=== PATIENT | male | born 1950 | race Caucasian/White ===

== ENCOUNTER → 2017-08-07 | Outpatient (CLI) | payer MEDICARE ==
[2017-08-07 12:48] LABS: CHLORIDE 109 mmol/L (98-107)
[2017-08-07 12:54] LABS: ALANINE AMINOTRANSFERASE 27 U/L (12-78); ALKALINE PHOSPHATASE 85 U/L (45-117); ANION GAP 8 mmol/L (5-15); BILIRUBIN,TOTAL 1.1 mg/dL (0.2-1.0); CALCIUM 8.6 mg/dL (8.5-10.1); CHOL/HDL RATIO 5.9; CHOLESTEROL, TOTAL 171 mg/dL (140-239); CREATININE 0.88 mg/dL (0.7-1.3); HDL CHOL % 17 % (26-37); HDL CHOLESTEROL (DIRECT) 29 mg/dL (40-60); LDL CHOLESTEROL,CALCULATED 93 mg/dL (54-169); LDL/HDL RATIO 3.2 (0.5-3.0); TOTAL PROTEIN 7.3 g/dL (6.4-8.2); TRIGLYCERIDES 246 mg/dL (50-200); VLDL CHOLESTEROL 49 mg/dL (0-25)
== END | disposition home or self-care (01) ==
LOC: CFH 09:21
PROVIDERS: ATTEND Family Medicine
DX: Z13.220 Encounter for screening for lipoid disorders (principal); R73.01 Impaired fasting glucose; R79.89 Other specified abnormal findings of blood chemistry
CPT/HCPCS: 36415; 80053; 80061